=== PATIENT | male | born 1985 | race Caucasian/White ===

== ENCOUNTER → 2020-12-26 14:09 | Outpatient (REF) | payer MEDICARE, MEDICAID, SELFPAY ==
--- NOTE | 2020-12-26 14:12 | CA_ITS ---
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 Normal LV systolic and diastolic function 2. Normal cardiac valvular Doppler 3. Normal RV systolic pressure 4. No pericardial effusion Findings Left Ventricle Normal left ventricular size, thickness, and systolic function. The visually estimated ejection fraction is between 60-65%. There is paradoxical septal motion consistent with a right ventricular pacemaker. Spectral Doppler is indicative of a normal filling pattern. Right Ventricle Normal right ventricular cavity size and systolic function. There is a pacemaker wire seen in the right ventricle. Atria Both atria are normal in size. Interatrial shunt cannot be excluded. A pacemaker wire is identified in the right atrium. Aortic Valve Normal aortic valve structure and function. There is no aortic valve stenosis. There is no aortic valve regurgitation. Mitral Valve Normal mitral valve structure and function. There is trace mitral valve regurgitation. There is no mitral valve stenosis. Pulmonic Valve The pulmonic valve was not well visualized. Tricuspid Valve Likely normal tricuspid valve structure and function. There is trace tricuspid valve regurgitation. The right ventricular systolic pressure is normal. The right ventricular systolic pressure is 24 mmHg. Normal right atrial pressure. There is no evidence of pulmonary hypertension. Great Vessels All visible segments of the aorta are normal in size. The pulmonary artery was not well visualized. Venous The inferior vena cava is normal in size and collapses greater than 50% with inspiration. Pericardium/Pleural There is no evidence of pericardial effusion. Prior Study Comparison No previous study in the last 5 years for comparison Measurements 2D Linear Measurements IVSd: 1.12 0.6-0.9/0.6-1.0 cm LVIDd: 4.76 3.9-5.3/4.2-5.9 cm LVIDd Index: 2.18 2.4-3.2/2.2-3.1 cm/m2 LVIDs: 2.94 2.0-3.6 cm LVPWd: 1.15 0.7-1.1 cm Ao Root: 3.20 2.1-3.5 cm LA Diam: 3.30 2.7-3.8/3.0-4.0 cm LAIDs Index: 1.51 1.5-2.3 cm/m2 LV Mass: 249.16 67-162/88-224 g LV Mass Index: 114.29 43-95/49-115 g/m2 LVOT Diam: 2.30 3.0+(-)1.3 cm Mitral Valve MV Pk E: 0.75 MV PK A: 0.50 MV Decel Time: 340.00 E/A: 1.50 E'Lateral: 12.60 E'Medial: 9.90 E/E' Med: 7.50 E/E' Lat: 5.90 PHT: 99.00 MVA PHT: 2.22 Decel [place]: 2.19 Aortic Valve AoV Pk Jaciel: 1.47 AoV Mn Jaciel: 0.88 AoV VTI: 0.32 AoV Pk Grad: 9.00 Aov Mn Grad: 4.00 REAGAN Cont.VTI: 3.63 LVOT LVOT Pk Jaciel: 1.24 LVOT Mn Jaciel: 0.75 LVOT VTI: 0.28 LVOT Pk Grad: 6.00 LVOT Mn Grad: 3.00 LVOT Diam: 2.30 LVOT Area: 4.15 Diastolic Function MV Pk E: 0.75 MV Pk A: 0.50 E/A: 1.50 E'Medial: 9.90 E/E' Med: 7.50 E' Laterial: 12.60 E/E' Lat: 5.90 Tricuspid Valve TR Pk Jaciel: 2.27 TR Pk Grad: 21.00 RA Press: 3.00 RVSP: 24.00 Great Vessels Aorta Ao Root-2D: 3.20 2.0-3.7 cm Ao Asc: 2.80 2.1-3.4 cm Pulmonary Valve PV Pk Jaciel: 0.88 Peak PV Grad: 3.00 Updated in Other Vendor System with Status of Final Duke Ramos MD electronically signed on 12/27/2020 12:46:23 PM with status of Final
== END ==
LOC: HO.CARD 14:09
PROVIDERS: Visit Provider Internal Medicine
DX: Z95.810 Presence of automatic (implantable) cardiac defibrillator (principal); Z86.79 Personal history of other diseases of the circulatory system
CPT/HCPCS: 93306

== ENCOUNTER 2021-03-02 10:14 | Outpatient (REF) | payer MEDICARE, MEDICAID, SELFPAY | END 2021-03-02 10:15 | disposition home or self-care (01) | LOC: HO.LAB 10:14 | PROVIDERS: Visit Provider Internal Medicine | DX: Z20.822 Contact with and (suspected) exposure to COVID-19 (principal) | CPT/HCPCS: C9803; U0003; U0005 ==

== ENCOUNTER 2021-06-28 14:00 | Emergency (ER) | payer MEDICARE, MEDICAID, SELFPAY ==
[2021-06-28 15:05] VITALS: BP 111/60; PULSE 69; RESP 18; TEMP 36.4; O2SAT 97; BMI 26.4
[2021-06-28 15:55] LABS: COVID-19 Test Negative (Negative)
--- NOTE | 2021-06-28 16:25 | ED_ITS ---
HPI - URI/Sore Throat General Chief Complaint: Upper Respiratory Symptoms Stated Complaint: cough, chest wall pain Time Seen by Provider: 06/28/21 16:01 Source: patient Mode of arrival: ambulatory Limitations: language barrier (Portuguese-speaking) History of Present Illness MD elicited complaint: cough Onset (ago): day(s) (Three days) Consistency: constant and progressively worsening Severity: mild Able to tolerate fluids by mouth: Yes Exacerbating factors: deep breaths Relieving factors: nothing Associated symptoms: denies other symptoms Treatments prior to arrival: none Related Data Previous Rx's Medication Instructions Recorded azithromycin 250 mg tablet See Rx Instructions .ROUTE 06/28/21 .COMPLEX #6 tab codeine 10 mg-guaifenesin 100 mg/5 5 ml PO Q6H PRN #120 ml 06/28/21 mL oral liquid (Guaifenesin AC) Allergies Allergy/AdvReac Type Severity Reaction Status Date / Time No Known Allergies Allergy Unverified 04/24/20 14:49 Review of Systems Review of Systems: Constitutional : No Weight loss, No Fever, No Chills, No Night Sweats, No Fatigue, No Malaise ENT/Mouth : No Hearing loss, No Ear Pain, No Nasal Congestion, No Sinus Pain, No Hoarseness, No sore throat, No Rhinorrhea, No Swallowing Difficulty Eyes: No Eye Pain, No Swelling, No Redness, No Foreign Body, No Discharge, No Vision Changes Cardiovascular : No Chest Pain, No SOB, No Dyspnea on Exertion, No Orthopnea, No Edema, No Palpitations Respiratory : + Cough, No Sputum, No Wheezing, No Smoke Exposure, No Dyspnea Gastrointestinal : No Nausea, No Vomiting, No Diarrhea, No Constipation, No abdominal Pain, No Hematochezia, No Melena Genitourinary : no irregular bleeding, No Dysuria, No Urinary Frequency, No Hematuria, No Urinary Incontinence, No Urgency, No Flank Pain, No Urinary Flow Changes, No Hesitancy Musculoskeletal : No joint pain, No Myalgias, No Joint Swelling Skin : No Skin Lesions, No rash Neuro : No Weakness, No Numbness, No Paresthesias, No Loss of Consciousness, No Dizziness, No Headache Psych : No Anxiety/Panic, No Depression, No SI/HI/AH/VH, No Social Issues, Heme/Lymph: No Bruising, No Bleeding,No Lymphadenopathy Endocrine : No Polyuria, No Polydipsia, No Temperature Intolerance Yes all other systems are reviewed and are negative [facility] Past Medical History Attestation statement: The following information was validated with the patient. Medical History Patient denies medical problems Social History Social History Advance Directives: No Physical Exam Vital Signs: Vital Signs: Last Vital Signs Temp 97.5 F 06/28/21 15:05 Pulse 69 06/28/21 15:05 Resp 18 06/28/21 15:05 BP 111/60 06/28/21 15:05 Pulse Ox 97 06/28/21 15:05 Body Mass Index 26.4 vital signs have been reviewed as normal and appeared to be correct. Blood pressure normal. Heart rate normal. Respiration rate normal. Temperature normal. Oxygen saturation normal. Appearance: Alert. Oriented X3. No acute distress. Head: Normal external exam. Normocephalic. Atraumatic. Eyes: PERRLA. EOMI. Conjunctiva and sclera normal. Eyelids normal. ENT: EAC normal. TM's Normal. Pharynx normal. Uvula midline. Moist mucous membranes. No trismus noted. No drooling noted. No muffled voice noted. Neck: Normal inspection. Neck supple. FROM. No adenopathy. Thyroid Normal. No meningeal signs. No neck mass noted. CVS: Normal heart rate and rhythm. Heart sound normal. Pulses normal throughout. No murmurs/rales/gallops. Respiratory: No respiratory distress. Painless inspiration. Breath sounds normal. No wheezes/rales/rhonchi noted. Chest nontender. No accessory muscle usage noted or decreased air movement noted. Back: Full range of motion noted. No rashes/lesion/induration/fluctuance or signs of infection noted. Skin: Skin warm and dry. Normal skin color. Normal skin turgor. No rashes/lesions/lacerations noted. Extremities: Extremities exhibit normal range of motion. Extremities nontender. Neuro: Oriented X 3. No motor deficit. No sensory deficit. Reflexes normal. Normal steady gait. No focal neuro deficits noted. Vascular: + radial pulses Normal cap refill. No cyanosis noted to upper extremity nails Course Course Course Narrative: 36-year-old male presenting to the ED with a dry cough for the past 3 days. Denies recent travel or sick contacts. Is not vaccinated to COVID. Denies any other complaints or concerns at this time. Patient negative for COVID. Lungs clear to auscultation. CV RRR. No labs or imaging indicated at this time. Patient most likely bronchitis will DC home with symptomatic treatment instructions return if any new or worsening symptoms to follow up with primary care provider and to self isolate and to be retested in 5-7 days if he continues to have symptoms. Patient understands agrees with this plan. MDM - URI/Sore Throat Medical Records Attestation: I reviewed the patient's medical records. Lab Data Attestation: I reviewed the patient's lab results. Labs: Lab Results 06/28/21 Range/Units 15:30 COVID-19 ([facility]AYY) Negative (Negative) COVID-19 Clin Com See Note Discharge Plan Discharge Clinical Impression: Bronchitis Patient Disposition: Home, Self-Care Instructions: Acute Bronchitis (ED) Additional Instructions: You had a negative COVID results today although your symptoms just started recen tly therefore you should have repeat testing in 5-7 days to be certain that you do not have COVID. At this time you will be okay for discharge. Please plan for self quarantine for up to 14 days. Do not expose yourself to others. You may not go to work. If testing does come back negative you may return to activities as long as you are no longer having any symptoms for at least 3 days. Please continue to follow cold instructions and wash your hands frequently. You may take Tylenol as directed on the bottle for pain or fever. Patient seen in the emergency department on -------- and should be excused from work until negative test results AND until 72 hours without any symptoms AND at least 10 days have passed since symptoms first appeared or since last exposure to COVID-19 positive patient CDC Guidelines for home isolation: - Stay away from others - WEAR A MASK if you are sick AND STAY HOME - Cover your mouth and nose with a tissue when you cough or sneeze. Dispose of t issues in a lined trash can and wash your hands immediately with soap and water for at least 20 seconds. If soap and water are not available, clean hands with alcohol-based hand sap business analyst that contains at least 60% alcohol. - Clean your hands often with soap and water for at least 20 seconds - Avoid touching your eyes, nose and mouth with unwashed hands - Do not share dishes, drinking glasses, cups, eating utensils, towels, or bedding with other people in your home. After using these items, wash them thoroughly with soap and water or put in the aviation tactical readiness officer. - Clean high-touch surfaces in your isolation area ( sick room and bathroom) every day; let a caregiver clean and disinfect high-touch surfaces in other areas of the home. Clean the area or item with soap and water or another detergent if it is dirty. Then, use a household disinfectant. - Limit contact with pets and animals: If you must care for a pet, wash your hands before and after interacting with them). Prescriptions: New azithromycin 250 mg tablet See Rx Instructions .ROUTE .COMPLEX Qty: 6 RF: 0 codeine-guaifenesin [Guaifenesin AC] 10-100 mg/5 mL liquid 5 ml PO Q6H PRN (Reason: cold symptoms) Qty: 120 RF: 0 Referrals: [employer],[facility] [Primary Care Provider] - 2 days Stand Alone Forms: Work/School Release Print Language: Kyrgyz
== END 2021-06-28 16:48 | disposition home or self-care (01) ==
PROVIDERS: Emergency Provider Emergency Medicine Emergency Medical Services
DX: J40 Bronchitis, not specified as acute or chronic (principal); R05.9 Cough, unspecified; R07.89 Other chest pain; Z79.899 Other long term (current) drug therapy; Z20.822 Contact with and (suspected) exposure to COVID-19
CPT/HCPCS: 36415; 87635; 99283

== ENCOUNTER 2022-06-11 17:27 | Emergency (ER) | payer MEDICARE, MEDICAID, SELFPAY ==
--- NOTE | 2022-06-11 | ECG_ITS ---
Test Reason : CP Blood Pressure : / mmHG Vent. Rate : 056 BPM Atrial Rate : 056 BPM P-R Int : 164 ms QRS Dur : 102 ms QT Int : 446 ms P-R-T Axes : 086 030 007 degrees QTc Int : [address] & T wave abnormality, consider anterior ischemia Abnormal ECG When compared with ECG of 22-MAR-2009 18:49, No significant change was found Referred By: Generic ED Physician Electronically Signed By:AMY CUNNINGHAM MD
--- NOTE | ~2022-06-11 | XR_ITS ---
EXAMINATION: XR CHEST CLINICAL INFORMATION: Chest pain COMPARISON: Chest x-ray 2008 TECHNIQUE: 2 views of the chest were obtained. FINDINGS: The lungs are clear. No airspace consolidation, pleural effusion, or pneumothorax. The cardiomediastinal silhouette is within normal limits. Right-sided dual-chamber ICD with lead tips in the right atrium and additional lead tip terminating in the right ventricular apex. No acute osseous injury. XR/XR chest 2V IMPRESSION: No acute pulmonary process.
[2022-06-11 18:00] VITALS: BP 115/55; PULSE 59; RESP 20; TEMP 36.6; O2SAT 97; BMI 28.5
[2022-06-11 18:18] LABS: MANUAL DIFF FLAG NO
[2022-06-11 18:21] LABS: Basophils Percent Auto 0.5 % (0-2); Eosinophils Absolute Auto 0.9 X10*3/uL (0.0-0.4); Eosinophils Percent Auto 11.2 % (0-4); Hematocrit 41.8 % (42.0-52.0); Hemoglobin 14.1 g/dl (14.0-18.0); Imm Gran Abs Auto 0.02 X10*3/uL (0.00-0.03); Imm Gran Pct Auto 0.2 % (0.0-0.4); Lymphocytes Percent Auto 12.3 % (20-40); Mean Corpuscular HGB Conc 33.7 g/dl (31.0-36.0); Mean Corpuscular Hemoglobin 27.8 pg (27.0-33.0); Mean Corpuscular Volume 82.3 fL (80.0-98.0); Mean Platelet Volume 9.3 fL (9.4-12.4); Monocytes Absolute Auto 0.9 X10*3/uL (0.1-1.2); Monocytes Percent Auto 11.6 % (2-11); Neutrophils Absolute Auto 5.2 x10*3/uL (2.0-8.3); Neutrophils Percent Auto 64.2 % (45-73); Platelet Count 199 X10*3/uL (160-400); Red Blood Count 5.08 X10*6/uL (4.60-5.80); Red Cell Distribution Width 13.2 % (11.0-16.0)
[2022-06-11 18:36] LABS: COVID-19 Test Negative (Negative); IDNOW Serial# 16C4AD1C; Influenza A Negative (Negative); Influenza B2 Negative (Negative)
[2022-06-11 18:39] LABS: Anion Gap 15 (12-20); Blood Urea Nitrogen 12 mg/dL (9-16); Calcium 8.9 mg/dL (8.4-10.2); Carbon Dioxide 24 mmol/L (22-29); Chloride 105 mmol/L (96-108); Creatinine Clr Calc Pharmacy 115.3; Estimated Glomerular Filt Rate > 60; Glucose Random 84 mg/dL (60-115); Sodium 140 mmol/L (135-145)
--- NOTE | 2022-06-11 18:50 | ED_ITS ---
HPI - Chest Pain General Chief Complaint: Chest Pain Stated Complaint: chest pain, coughing Time Seen by Provider: 06/11/22 18:36 Source: patient, RN notes reviewed and old records reviewed Mode of arrival: ambulatory Limitations: no limitations History of Present Illness HPI narrative: 37-year-old male with past medical history of pacemaker placement at age 12 is here today for complaining of chest pain sharp nonradiating after coughing this morning which is about 9 hours ago. Patient denies any fever or chills. Patient denies chest pain now. States that chest pain went away few minutes after coughing episode. Patient denies any presyncope, syncope, chest tightness, SOB with or without exertion, energy. Patient reports that she had a negative placed when he was 12 for bradycardia. Patient sees providers at [facility]. He has regular appointment with his back end engineer. Patient denies any fever or chills. Denies any nausea or vomiting. Denies being around anyone who has fever, COVID, flu, RSV. Patient denies traveling. MD complaint: chest pain (Results) Onset (ago): hour(s) (9 hrs ago ) Timing of current episode: episodic Onset: during rest and other (After coughing) Pain location: substernal Pain radiation: none Severity: mild Quality: sharp Related Data Previous Rx's Medication Instructions Recorded azithromycin 250 mg tablet See Rx Instructions PO .COMPLEX #6 06/28/21 tabs codeine 10 mg-guaifenesin 100 mg/5 5 ml PO Q6H PRN cold symptoms #120 06/28/21 mL oral liquid (Guaifenesin AC) mL Allergies Allergy/AdvReac Type Severity Reaction Status Date / Time No Known Allergies Allergy Unverified 04/24/20 14:49 Review of Systems Constitutional: Constitutional: Denies weight gain and Denies weight loss ENT: Reports system reviewed and no additional complaints, except as documented, Denies dysphagia and Denies odynophagia Cardiovascular: Cardiovascular: Reports no additional cardiovascular complaints and Reports chest pain (In the morning after coughing now resolved) Respiratory: Respiratory: Reports no additional respiratory complaints Gastrointestinal: Gastrointestinal: Denies abdominal pain, Denies belching, Denies melena, Denies bloating, Denies change in bowel habits, Denies dysphagia, Denies excessive flatus, Denies dyspepsia, Denies heartburn, Denies diarrhea, De nies loose stools, Denies nausea, Denies odynophagia and Denies vomiting Genitourinary: Genitourinary: Reports no additional male genitourinary co mplaints Musculoskeletal: Musculoskeletal: Reports no additional musculoskeletal complaints Neurologic: Reports system reviewed and no additional complaints, except as documented Psychiatric: Psychiatric: Reports no additional psychiatric complaints Endocrine: Endocrine: Reports no additional endocrine complaints PMFSH Past Medical History Medical History Patient denies medical problems Social History Social History Advance Directives: No Advance Directives Information Provided: No Physical Exam Vital Signs: Vital Signs: Last Vital Signs Temp 97.9 F 06/11/22 18:00 Pulse 59 06/11/22 18:00 Resp 20 06/11/22 18:00 BP 115/55 L 06/11/22 18:00 Pulse Ox 97 06/11/22 18:00 O2 Del Method 06/11/22 18:00 BMI result Body Mass Index 28.5 Const: General: healthy appearing, no acute distress and well developed Nutritional Appearance: well nourished Orientation/consciousness: patient or iented x3 HEENT: Head: Yes normal to inspection, Yes normocephalic and Yes atraumatic Face and sinus: Yes normal facial exam Mouth: Normal oral and palatal mucosa present Throat: Yes posterior oropharynx normal, Yes tonsils normal and Yes uvula midline Eyes: General: appearance normal, both eyes and all related structures Neck: Neck: Yes normal visual inspection, Yes full ROM and Yes trachea midline Thyroid: Thyroid normal Resp: Effort & Inspection: normal respiratory effort, able to speak in complete sentences, no tracheal deviation and symmetric chest movement Auscultation: clear to auscultation bilaterally Cardio: Rate: regular rate Heart sounds: S1 normal heart sound present, S2 normal heart sound present, no gallops and no murmurs GI: Inspection: Yes normal to inspection and No distended Palpation (GI): Soft to palpation, not firm, nontender and No hepatosplenomegaly present Auscultation: normal bowel sounds : General: Yes no CVA tenderness Back/Spine/Pelvis: Back: no CVA tenderness Skin: General skin exam: elasticity normal, turgor normal and dry skin Neuro: General: patient oriented x3 Psych: Appearance: grossly normal Mental Status: mental status grossly normal Speech and movement: Normal speech and movement present Affect: normal affect Attitude: cooperative Thought process: Normal thought process present Thought content: Normal thought content present Insight: Good insight present (Psych) Judgement: Good judgement present (Psych) Course Course Course Narrative: 37-year-old male with past medical history of pacemaker placement at age 12 is here today for complaining of chest pain sharp nonradiating after coughing this morning which is about 9 hours ago. Patient denies any fever or chills. Patient denies chest pain now. States that chest pain went away few minutes after coughing episode. Patient denies any presyncope, syncope, chest tigh tness, SOB with or without exertion, energy. Patient reports that she had a negative placed when he was 12 for bradycardia. Patient sees providers at [facility]. He has regular appointment with his back end engineer. Patient denies any fever or chills. Denies any nausea or vomiting. Denies being around anyone who has fever, COVID, flu, RSV. Patient denies traveling. Will do troponin, CBC. Chest x-ray show no acute processes. Reevaluation(s) Reevaluation #1: Troponin 5.4, negative leukocytosis no anemia for patient continues to be free of chest pain right now. Will repeat 2nd troponin. Most likely atypical chest pain, musculoskeletal most likely. Disposition pending 2nd troponin. Reevaluation #2: Second troponin 5. Patient continues to be free of chest pain. DUS negative patient will be sent home to follow-up with PCP and his back end engineer. Most l ikely musculoskeletal pain that happen with cough. Patient had no cough while in the ED. no fever MDM - Chest Pain Differential Diagnosis Differential diagnosis: Likely atypical chest pain and costochondritis Medical Records Data Attestation: I reviewed the patient's medical records. Lab Data Result diagrams: 06/11/22 18:10 06/11/22 18:10 Labs: Lab Results 06/11/22 06/11/22 06/11/22 Range/Units 18:10 18:10 18:10 WBC 8.0 (4.8-10.8) X10*3/uL RBC 5.08 (4.60-5.80) X10*6/uL Hgb 14.1 (14.0-18.0) g/dl Hct 41.8 L (42.0-52.0) % MCV 82.3 (80.0-98.0) fL MCH 27.8 (27.0-33.0) pg MCHC 33.7 (31.0-36.0) g/dl RDW 13.2 (11.0-16.0) % Plt Count 199 (160-400) X10*3/uL MPV 9.3 L (9.4-12.4) fL Immature Gran % (Auto) 0.2 (0.0-0.4) % Neut % (Auto) 64.2 (45-73) % Lymph % (Auto) 12.3 L (20-40) % Cedar % (Auto) 11.6 H (2-11) % Eos % (Auto) 11.2 H (0-4) % Baso % (Auto) 0.5 (0-2) % Lymph # (Auto) 1.0 L (1.2-4.9) X10*3/uL Cedar # (Auto) 0.9 (0.1-1.2) X10*3/uL Eos # (Auto) 0.9 H (0.0-0.4) X10*3/uL Baso # (Auto) 0.0 (0.0-0.2) X10*3/uL Abs Immat Gran (auto) 0.02 (0.00-0.03) X10*3/uL Absolute Neuts (auto) 5.2 (2.0-8.3) x10*3/uL Absolute Nucleated RBC 0.000 (0.0-0.012) X10*3/uL Nucleated RBC % (auto) 0.0 (0.0-0.2) /100WBC Sodium 140 (135-145) mmol/L Potassium 4.0 (3.3-5.1) mmol/L Chloride 105 (96-108) mmol/L Carbon Dioxide 24 (22-29) mmol/L Anion Gap 15 (12-20) BUN 12 (9-16) mg/dL Creatinine 1.06 (0.5-1.4) mg/dL Estim Creat Clear Calc 115.3 Estimated GFR > 60 Random Glucose 84 (60-115) mg/dL Calcium 8.9 (8.4-10.2) mg/dL Troponin I High Sens 5.4 (<3.5-35.0) ng/L Urine Opiates Screen (Not Detect) Urine Fentanyl Screen (Not Detect) Ur Barbiturates Screen (Not Detect) Ur Phencyclidine Scrn (Not Detect) Ur Amphetamines Screen (Not Detect) U Benzodiazepines Scrn (Not Detect) Urine Cocaine Screen (Not Detect) U Marijuana (THC) Screen (Not Detect) COVID-19 (SHAYY) (Negative) COVID-19 Clin Com Influenza Type A (PALMA) (Negative) Influenza Type B (PALMA) (Negative) Influenza A & B Note 06/11/22 06/11/22 06/11/22 Range/Units 18:10 18:10 20:03 WBC (4.8-10.8) X10*3/uL RBC (4.60-5.80) X10*6/uL Hgb (14.0-18.0) g/dl Hct (42.0-52.0) % MCV (80.0-98.0) fL MCH (27.0-33.0) pg MCHC (31.0-36.0) g/dl RDW (11.0-16.0) % Plt Count (160-400) X10*3/uL MPV (9.4-12.4) fL Immature Gran % (Auto) (0.0-0.4) % Neut % (Auto) (45-73) % Lymph % (Auto) (20-40) % Cedar % (Auto) (2-11) % Eos % (Auto) (0-4) % Baso % (Auto) (0-2) % Lymph # (Auto) (1.2-4.9) X10*3/uL Cedar # (Auto) (0.1-1.2) X10*3/uL Eos # (Auto) (0.0-0.4) X10*3/uL Baso # (Auto) (0.0-0.2) X10*3/uL Abs Immat Gran (auto) (0.00-0.03) X10*3/uL Absolute Neuts (auto) (2.0-8.3) x10*3/uL Absolute Nucleated RBC (0.0-0.012) X10*3/uL Nucleated RBC % (auto) (0.0-0.2) /100WBC Sodium (135-145) mmol/L Potassium (3.3-5.1) mmol/L Chloride (96-108) mmol/L Carbon Dioxide (22-29) mmol/L Anion Gap (12-20) BUN (9-16) mg/dL Creatinine (0.5-1.4) mg/dL Estim Creat Clear Calc Estimated GFR Random Glucose (60-115) mg/dL Calcium (8.4-10.2) mg/dL Troponin I High Sens (<3.5-35.0) ng/L Urine Opiates Screen Not Detected (Not Detect) Urine Fentanyl Screen Not Detected (Not Detect) Ur Barbiturates Screen Not Detected (Not Detect) Ur Phencyclidine Scrn Not Detected (Not Detect) Ur Amphetamines Screen Not Detected (Not Detect) U Benzodiazepines Scrn Not Detected (Not Detect) Urine Cocaine Screen Not Detected (Not Detect) U Marijuana (THC) Screen Not Detected (Not Detect) COVID-19 (SHAYY) Negative (Negative) COVID-19 Clin Com See Note Influenza Type A (PALMA) Negative (Negative) Influenza Type B (PALMA) Negative (Negative) Influenza A & B Note See Note 06/11/22 Range/Units 20:03 WBC (4.8-10.8) X10*3/uL RBC (4.60-5.80) X10*6/uL Hgb (14.0-18.0) g/dl Hct (42.0-52.0) % MCV (80.0-98.0) fL MCH (27.0-33.0) pg MCHC (31.0-36.0) g/dl RDW (11.0-16.0) % Plt Count (160-400) X10*3/uL MPV (9.4-12.4) fL Immature Gran % (Auto) (0.0-0.4) % Neut % (Auto) (45-73) % Lymph % (Auto) (20-40) % Cedar % (Auto) (2-11) % Eos % (Auto) (0-4) % Baso % (Auto) (0-2) % Lymph # (Auto) (1.2-4.9) X10*3/uL Cedar # (Auto) (0.1-1.2) X10*3/uL Eos # (Auto) (0.0-0.4) X10*3/uL Baso # (Auto) (0.0-0.2) X10*3/uL Abs Immat Gran (auto) (0.00-0.03) X10*3/uL Absolute Neuts (auto) (2.0-8.3) x10*3/uL Absolute Nucleated RBC (0.0-0.012) X10*3/uL Nucleated RBC % (auto) (0.0-0.2) /100WBC Sodium (135-145) mmol/L Potassium (3.3-5.1) mmol/L Chloride (96-108) mmol/L Carbon Dioxide (22-29) mmol/L Anion Gap (12-20) BUN (9-16) mg/dL Creatinine (0.5-1.4) mg/dL Estim Creat Clear Calc Estimated GFR Random Glucose (60-115) mg/dL Calcium (8.4-10.2) mg/dL Troponin I High Sens 5.0 (<3.5-35.0) ng/L Urine Opiates Screen (Not Detect) Urine Fentanyl Screen (Not Detect) Ur Barbiturates Screen (Not Detect) Ur Phencyclidine Scrn (Not Detect) Ur Amphetamines Screen (Not Detect) U Benzodiazepines Scrn (Not Detect) Urine Cocaine Screen (Not Detect) U Marijuana (THC) Screen (Not Detect) COVID-19 (SHAYY) (Negative) COVID-19 Clin Com Influenza Type A (PALMA) (Negative) Influenza Type B (PALMA) (Negative) Influenza A & B Note Imaging Data Chest x-ray: Radiologist's impression: FINDINGS: The lungs are clear. No airspace consolidation, pleural effusion, or pneumothorax. The cardiomediastinal silhouette is within normal limits. Right-sided dual-chamber ICD with lead tips in the right atrium and additional lead tip terminating in the right ventricular apex. No acute osseous injury. XR/XR chest 2V IMPRESSION: No acute pulmonary process. ECG Data ECG #1: Prior ECG tracings: available for review Ischemic changes: t wave inversions (Leads V1 to V4, when compared with last EKG available in the system from 2008 new T-wave inversion in V4 ) Interpretation: Ventricular rate he 56, AK interval 0.16, QRS 0.1, QT interval 446, QTC 430. Discharge Plan Discharge Clinical Impression: Atypical chest pain, Costalchondritis Patient Disposition: Home, Self-Care Instructions: Chest Pain (ED), Costochondritis (ED), Noncardiac Chest Pain (ED) Additional Instructions: You were seen here today for chest pain after coughing. All your lab work showed that this is not cardiac is(heart) related pain. Most likely musculoskeletal pain. Please follow-up with your primary care provider and with your back end engineer. Please return to emergency department if your symptoms will get worse or if you experience any additional concerning symptoms. Prescriptions: No Action azithromycin 250 mg tablet See Rx Instructions .ROUTE .COMPLEX Qty: 6 0RF Rx Instructions: take 500 mg today (day 1), then 250 mg for 4 days (days 2-5) codeine-guaifenesin [Guaifenesin AC] 10-100 mg/5 mL liquid 5 ml PO Q6H PRN (Reason: cold symptoms) Qty: 120 0RF Stand Alone Forms: Work/School Release Print Language: Uzbek
[2022-06-11 19:32] LABS: Troponin-I High Sensitivity 5.4 ng/L (<3.5-35.0)
[2022-06-11] MEDS: Aspirin Enteric Coated 81 MG TABLET.DR 162 MG PO (19:40)
[2022-06-11 20:29] LABS: Amphetamine Screen Urine Not Detected (Not Detect); Barbiturates, Urine Not Detected (Not Detect); Benzodiazepines Screen Urine Not Detected (Not Detect); Cannabinoid Screen Urine Not Detected (Not Detect); Cocaine Screen Urine Not Detected (Not Detect); Fentanyl, urine Not Detected (Not Detect); Opiate Screen Urine Not Detected (Not Detect); Phencyclidine Screen Urine Not Detected (Not Detect)
[2022-06-11 21:30] VITALS: BP 106/58; PULSE 57; RESP 16; TEMP 36.8; O2SAT 99
== END 2022-06-11 21:38 | disposition home or self-care (01) ==
PROVIDERS: Nurse Practitioner Family; Emergency Provider Student in an Organized Health Care Education/Training Program
DX: R07.89 Other chest pain (principal); R05.9 Cough, unspecified; Z20.822 Contact with and (suspected) exposure to COVID-19; Z79.899 Other long term (current) drug therapy
CPT/HCPCS: 36415; 71046; 80048; 80307; 84484; 85025; 87502; 87635; 93005; 99283

== ENCOUNTER 2023-06-15 10:21 | Emergency (ER) | payer MEDICARE, MEDICAID, SELFPAY ==
--- NOTE | 2023-06-15 10:25 | ECG_ITS ---
Test Reason : cp Blood Pressure : / mmHG Vent. Rate : 074 BPM Atrial Rate : 074 BPM P-R Int : 180 ms QRS Dur : 090 ms QT Int : 428 ms P-R-T Axes : 078 050 038 degrees QTc Int : 475 ms Normal sinus rhythm T-wave inversion in Anteroseptal leads Intra-ventricular conduction delay Abnormal ECG When compared with ECG of 11-JUN-2022 18:10, T wave amplitude has decreased in Anterior leads Referred By: Generic ED Physician Electronically Signed By:AMY CUNNINGHAM MD
[2023-06-15 11:18] VITALS: BP 113/66; PULSE 61; RESP 18; TEMP 36.5; O2SAT 97; BMI 23.1
[2023-06-15 12:50] LABS: Influenza A PCR NEGATIVE (Negative); Influenza B PCR NEGATIVE (Negative); Resp Syncy Virus RNA Qual PCR NEGATIVE (Negative); SARS COV2 PCR INHOUSE NEGATIVE (Negative)
--- NOTE | 2023-06-15 17:54 | ED_ITS ---
HPI - URI/Sore Throat General Chief Complaint: Upper Respiratory Symptoms Stated Complaint: Cough/Chest pain Time Seen by Provider: 06/15/23 16:17 History of Present Illness HPI Narrative: patient complains of a cough which began yesterday and is described as mild with no sputum no shortness of breath no chest pain no fever no sore throat no difficulty breathing or swallowing no dizziness no weakness no fatigue no abdominal pain no nausea vomiting or diarrhea no calf swelling no leg pain no leg swelling Triage note did not say that patient had some shortness of breath and some pain around chest wall but when I spoke to the patient he denies any chest pain or shortness of breath Related Data Previous Rx's Medication Instructions Recorded azithromycin 250 mg tablet See Rx Instructions PO .COMPLEX #6 06/28/21 tabs codeine 10 mg-guaifenesin 100 mg/5 5 ml PO Q6H PRN cold symptoms #120 06/28/21 mL oral liquid (Guaifenesin AC) mL azithromycin 250 mg tablet See Rx Instructions PO .COMPLEX #6 06/15/23 (Zithromax Z-Ravin) tabs Allergies Allergy/AdvReac Type Severity Reaction Status Date / Time No Known Allergies Allergy Unverified 04/24/20 14:49 [facility] Past Medical History Source: nursing notes reviewed Medical History Patient denies medical problems Social History Social History Advance Directives: No Advance Directives Information Provided: Yes Physical Exam Vital Signs: Vital Signs: Last Vital Signs Temp 97.7 F 06/15/23 11:18 Pulse 61 06/15/23 11:18 Resp 18 06/15/23 11:18 BP 113/66 06/15/23 11:18 Pulse Ox 97 06/15/23 11:18 O2 Del Method Room Air 06/15/23 11:18 BMI result Body Mass Index 23.1 general appearance is comfortable cooperative no acute distress no respiratory distress Eyes no redness or discharge The pharynx is clear Neck is supple Chest is clear to auscultation bilateral with full symmetric equal breath sounds There is no chest wall tenderness, there is no discomfort with deep breath Heart no murmur Abdomen soft nontender Extremities no calf tenderness or edema Course Course Course Narrative: patient who came in for cough x1 day with no shortness of breath or chest pain He did have an EKG done from triage which was a normal sinus rhythm without acute ischemic change no acute findings COVID and flu tests were negative The physical exam was normal with clear full symmetric lung sounds no wheezing no respiratory distress, vital signs were normal O2 sat 97 respiratory rate 16 afebrile Well-appearing patient was discharged with diagnosis of bronchitis Medical Decision Making Lab Data Labs: Lab Results 06/15/23 Range/Units 11:35 Influenza Type A (PCR) NEGATIVE (Negative) Influenza Type B (PCR) NEGATIVE (Negative) RSV RNA Qual (PCR) NEGATIVE (Negative) SARS-CoV-2 RNA (RT-PCR) NEGATIVE (Negative) Discharge Plan Discharge Clinical Impression: Bronchitis Patient Disposition: Home, Self-Care Additional Instructions: EKG was normal no signs of any heart problem COVID and flu tests were negative Vital signs were all normal your lungs were clear It is likely that your cough is from a virus, but I did write a prescription for antibiotic if cough does not improve in for 5 days Return to the ER any time any worse condition or any concern especially difficulty breathing Prescriptions: New azithromycin [Zithromax Z-Ravin] 250 mg tablet See Rx Instructions .ROUTE .COMPLEX Qty: 6 0RF Rx Instructions: For 250 mg dose pack: take 500 mg today (day 1), then 250 mg for 4 days (days 2-5) No Action azithromycin 250 mg tablet See Rx Instructions .ROUTE .COMPLEX Qty: 6 0RF Rx Instructions: take 500 mg today (day 1), then 250 mg for 4 days (days 2-5) codeine-guaifenesin [Guaifenesin AC] 10-100 mg/5 mL liquid 5 ml PO Q6H PRN (Reason: cold symptoms) Qty: 120 0RF
== END 2023-06-15 18:04 | disposition home or self-care (01) ==
PROVIDERS: Emergency Provider Emergency Medicine
DX: J40 Bronchitis, not specified as acute or chronic (principal); R07.89 Other chest pain; R06.02 Shortness of breath; R05.9 Cough, unspecified; Z20.822 Contact with and (suspected) exposure to COVID-19; Z20.828 Contact with and (suspected) exposure to other viral communicable diseases
CPT/HCPCS: 0241U; 93005; 99283

== ENCOUNTER 2024-11-30 10:19 | Emergency (ER) | payer MEDICARE, MEDICAID, SELFPAY ==
--- NOTE | ~2024-11-30 | XR_ITS ---
EXAMINATION: XR HIP 1 VIEW RIGHT WITH PELVIS HISTORY: fall COMPARISON: There are no prior studies for comparison. FINDINGS: Two AP views of the pelvis and two views of the right hip are submitted. There are herniation pits in both femoral necks. Osseous mineralization is otherwise normal. There is no fracture or dislocation. The joint space is maintained. The soft tissues are unremarkable. XR/XR hip RT w PEL1V IMPRESSION: Unremarkable examination of the right hip. Electronically signed by: Quique Shipman MD 11/30/2024 11:01 AM EDT
--- NOTE | ~2024-11-30 | XR_ITS ---
EXAMINATION: XR FEMUR, RIGHT CLINICAL INFORMATION: fall COMPARISON: None available. TECHNIQUE: AP and lateral views of the right femur were obtained. FINDINGS: The bones and soft tissues are normal. No fracture. No osseous lesions. Mild arthritis in the right hip joint. No knee joint effusion noted. Lateral patellar subluxation incidentally noted. XR/XR femur RT 2V IMPRESSION: No acute bony abnormalities. Lateral patellar subluxation incidentally noted. Electronically signed by: Dax Hart MD 11/30/2024 12:44 PM EDT
[2024-11-30 10:29] VITALS: BP 135/78; PULSE 60; RESP 20; TEMP 37; O2SAT 98; BMI 29.7
--- NOTE | 2024-11-30 10:48 | PC.NURSE ---
Pt given ice pack in triage, pt then noted to be laying on floor in waiting room. Pt noted to get up off floor and bearing some weight on right leg, and also noted to be lifting his knee to his chest while in the WC being brought to Xray
--- NOTE | 2024-11-30 11:12 | ED.FALL ---
HPI - Fall General Chief Complaint: Fall Stated Complaint: Fall- R Leg Pain/ Hip Pain Time Seen by Provider: 11/30/24 11:11 Source: patient, RN notes reviewed and old records reviewed Mode of arrival: ambulatory History of Present Illness ED Provider: Janeth Garcia PA-C [facility] Narrative: 39-year-old male no significant past medical history presenting to the ED complaining of right upper leg/hip pain s/p mechanical fall onto hip while attempting to put pants on this morning. States fell onto hardwood floor, denies head trauma or LOC. denies symptoms prior to fall. Has been ambulatory since incident. Denies anticoagulation use, numbness, tingling, weakness, abdominal pain Related Data Previous Rx's ?Medication ?Instructions ?Recorded azithromycin 250 mg tablet See Rx Instructions PO .COMPLEX #6 06/28/21 tabs codeine 10 mg-guaifenesin 100 mg/5 5 ml PO Q6H PRN cold symptoms #120 06/28/21 mL oral liquid (Guaifenesin AC) mL azithromycin 250 mg tablet See Rx Instructions PO .COMPLEX #6 06/15/23 (Zithromax Z-Ravin) tabs acetaminophen 500 mg tablet 500 mg PO Q6H PRN fever or pain 11/30/24 (Tylenol Extra Strength) #14 tabs ibuprofen 800 mg tablet 800 mg PO Q8H PRN pain #14 tabs 11/30/24 Allergies Allergy/AdvReac Type Severity Reaction Status Date / Time No Known Allergies Allergy Unverified 11/30/24 10:30 Review of Systems Review of Systems: Yes all other systems are reviewed and are negative Constitutional: Constitutional: Reports as per [facility] Past Medical History Attestation statement: The following information was validated with the patient. Source: old records reviewed Medical History Patient denies medical problems Social History Social History Advance Directives: No Advance Directives Information Provided: Yes Physical Exam Vital Signs: Vital Signs: Last Vital Signs Temp 98.6 F 11/30/24 10:29 Pulse 60 11/30/24 10:29 Resp 20 11/30/24 10:29 BP 135/78 11/30/24 10:29 Pulse Ox 98 11/30/24 10:29 O2 Del Method Room Air 11/30/24 10:29 BMI result Body Mass Index 29.7 Const: General: cooperative, healthy appearing and no acute distress Orientation/consciousness: patient oriented x3 Limitations: no limitations HEENT: Head: Yes normal to inspection and Yes atraumatic Ears: hearing grossly normal bilaterally General nose exam: Normal external nose present Face and sinus: Yes normal facial exam Eyes: General: appearance normal, both eyes and all related structures EOM: EOMs intact bilaterally Neck: Neck: Yes normal visual inspection and Yes no meningeal signs Resp: Effort & Inspection: normal respiratory effort and no respiratory distress Cardio: Rate: regular rate GI: Inspection: Yes normal to inspection Palpation (GI): Soft to palpation, nontender, no guarding and not rigid Back/Spine/Pelvis: Other: No midline cervical/thoracic/lumbar spinous tenderness/step-off or deformity Skin: Rashes: no rashes Wounds: no wounds Neuro: General: patient oriented x3, tone normal and no meningeal signs Cranial nerves: Yes CN's II-XII intact bilaterally Gait exam (Neuro): Normal gait present Extrem: Other: Pelvis stable. No appreciable deformity. Mild reproducible tenderness to right proximal femur. No hematoma/ecchymosis or crepitus. Full range of motion to right hip/RLE intact. NV intact distally General: Yes normal to inspection Course Course Course Narrative: XR hip RT w PEL1V IMPRESSION: Unremarkable examination of the right hip. XR femur RT 2V IMPRESSION: No acute bony abnormalities. Lateral patellar subluxation incidentally noted. > knee nontender. No appreciable deformity. Ambulating with steady gait. Recommend ibuprofen/Tylenol, rest, ice and PCP follow-up Results discussed with patient including worrisome signs and symptoms and strict return precautions, and when to return to the emergency department. They verbalized understanding and feel safe for discharge at this time. Medications Administered Discontinued Medications Generic Name Dose Route Start Last Admin Trade Name Freq PRN Reason Stop Dose Admin Ibuprofen 800 mg 11/30/24 11:37 11/30/24 11:40 Ibuprofen 800 Mg Tablet PO 11/30/24 11:38 800 mg ONCE ONE Administration Ketorolac Tromethamine 30 mg 11/30/24 11:19 11/30/24 11:29 Ketorolac Tromethamine 30 Mg/Ml Vial IM 11/30/24 11:20 Not Given ONCE ONE Medical Decision Making Medical Decision Making MDM Narrative: 39-year-old male no significant past medical history presenting to the ED complaining of right upper leg/hip pain s/p mechanical fall onto hip while attempting to put pants on this morning. On exam vital signs stable, NAD, nontoxic appearing, physical exam as noted above. No midline spinous tenderness. Physical exam as noted above. Concern for contusion vs strain vs fracture. Low suspicion for intra-abdominal pathology Plan: X-ray, IM Toradol Please refer to course for remaining clinical decision making, interpretation of labs/imaging results, and discussions with consultants and/or family members. Differential Diagnosis Differential Diagnoses: The differential diagnosis associated with the presentation includes As above Independent Interpretation I performed an independent interpretation of an: Plain X-Ray Radiology Impression Discussion of test interpretation with radiology: I have reviewed the radiologist's reading. External Record Review External record reviewed: Inpatient record, Office record, Outpatient record, Prior outpatient labs, Prior outpatient radiology, Primary care record and Outside ED record Tests considered The following testing was considered but not selected: As above Prescription Management I considered prescription management with: Pain Medication Chronic Conditions Patient?s care impacted by: Other Social Determinants Patient?s care significantly limited by Social Determinants of Health including: Other Social Determinant of Health Discharge Plan Discharge Clinical Impression: Left leg pain Patient Disposition: Home, Self-Care Instructions: Leg Pain (ED) Additional Instructions: Your x-rays are reassuring Ice and elevate Take Tylenol and ibuprofen for pain /swelling If pain persists or worsens/becomes unbearable, area becomes discolored, increasingly swollen, red, you spike fevers, you are unable to walk return to the ED Prescriptions: New ibuprofen 800 mg tablet 800 mg PO Q8H PRN (Reason: pain) Qty: 14 0RF acetaminophen [Tylenol Extra Strength] 500 mg tablet 500 mg PO Q6H PRN (Reason: fever or pain) Qty: 14 0RF No Action azithromycin 250 mg tablet See Rx Instructions .ROUTE .COMPLEX Qty: 6 0RF Rx Instructions: take 500 mg today (day 1), then 250 mg for 4 days (days 2-5) codeine-guaifenesin [Guaifenesin AC] 10-100 mg/5 mL liquid 5 ml PO Q6H PRN (Reason: cold symptoms) Qty: 120 0RF azithromycin [Zithromax Z-Ravin] 250 mg tablet See Rx Instructions .ROUTE .COMPLEX Qty: 6 0RF Rx Instructions: For 250 mg dose pack: take 500 mg today (day 1), then 250 mg for 4 days (days 2-5) Referrals: [facility] [Primary Care Provider] - 1 week Print Language: Kyrgyz
[2024-11-30] MEDS: Ibuprofen 800 MG TABLET PO (11:40)
--- OUTSIDE RECORDS SUMMARY | 2024-11-30 11:57 | XMS_ITS | Clinical Summary ---
Author Organization [employer] Address [address] [place] [address] Care Team Providers Care Cistern Room Operator Name Role Phone Jeannine Cobos MD Primary Care Provider + Social History Tobacco Use Types Packs/Day Years Used Date Smoking Tobacco: Never Assessed Sex and Gender Information Value Date Recorded Sex Assigned at Male 06/07/2022 10:16 AM EDT Legal Sex Male 10:16 AM EDT Gender Identity Male 06/07/2022 10:16 AM EDT Sexual Orientation Choose not to disclose 2021 10:16 AM EDT Last Filed Vital Signs Vital Sign Reading Time Taken Comments Blood Pressure 128/90 01/14/2022 12:06 AM EDT Pulse 60 01/14/2022 12:06 AM EDT Temperature - - Respiratory Rate - - Oxygen Saturation - - Inhaled Oxygen Concentration - - Weight 96.6 kg (213 lb) 01/14/2022 12:06 AM EDT Height 188 cm (6' 2 ) 01/14/2022 12:06 AM EDT Body Mass Index 27.35 01/14/2022 12:06 AM EDT Plan of Treatment Health Maintenance Due Date Last Done Comments Depression Screening 1983 Lipid Panel 1983 SDOH Screening 1983 Alcohol/Substance Use Screening 1995 Tobacco Screening 1995 Family Planning (PISQ) 1998 Hepatitis C Screening 2001 DTaP/Tdap/Td Vaccines (1 - Tdap) 2002 Hepatitis B Vaccines (1 of 3 - 19+ 3-dose series) 2002 COVID-19 Vaccine ( - 2023-2 5 season) 2024 Influenza Vaccine (#1) 2024 Zoster Vaccines (1 of 2) 2033 RSV Patients and Pa tients Aged 60 years or older (1 - 1-dose 75+ series) 2058 HIV Screening Completed 01/14/2022 HIB Vaccines Aged Out No longer eligi ble based on patient's age to complete this topic HPV Vaccines Aged Out No longer eligi ble based on patient's age to complete this topic Hepatitis A Vaccines Aged Out No long er eligible based on patient's age to complete this topic IPV Vaccines Aged Out No longer eligi ble based on patient's age to complete this topic Meningococcal Vaccine Aged Out No saige laurence eligible based on patient's age to complete this topic Pneumococcal Vaccine: Pediat rics (0 to 5 Years) and At-Risk Patients (6 to 49) Years) Aged Out No longer elig ible based on patient's age to complete this topic RSV under 20 months Aged Out No longe r eligible based on patient's age to complete this topic Rotavirus Vaccines Aged Out No longer eligible based on patient's age to complete this topic Procedures Procedure Name Priority Date/Time Associated Diagnosis Comments HIV 1/2 ANTIGEN/ANTIBODY, FOURTH GENERATION W/RFL Routine 01/14/2022 10:44 AM EDT from Last 3 Months or Most Recently Relevant to Health Maintenance Results * HIV 1/2 ANTIGEN/ANTIBODY,FOURTH GENERATION W/RFL (01/14/2022 10:44 AM EDT) Pathologist [facility] HIV-1/2 ANTIGEN AND ANTIBODIES, 4TH GENERATION W/ REFLEX NON-REACT CALVIN NON-REACT [facility] Comment: HIV-1 antigen and HIV-1/HIV-2 antibodies were not detected. There is no laboratory evidence of HIV infection. ?? PLEASE NOTE: This information has been disclosed to you from records whose confidentiality may be protected by state law. ??If your state requires such protection, then the state law prohibits you from making any further disclosure of the information without the specific written consent of the person to whom it pertains, or as otherwise permitted by law. A general authorization for the release of medical or other information is NOT sufficient for this purpose. ? For additional information please refer to http://[employer]bakers/faq/VEA012 (This link is being provided for informational/ educational purposes only.) ? The performance of this assay has not been clinically validated in patients less than 2 years old. ?? 01/14/2022 10:4 4 AM EDT Jeannine Cobos MD LAB BLOOD ORDERABLES Fin al Result [facility] [address] from Last 3 Months or Most Recently Relevant to Health Maintenance Insurance [facility] [employer] [place] [phone] Care Teams Cistern Room Operator Relationship Specialty Start Date End Date Jeannine Cobos MD [address] [place] [id number] PCP - General Family Medicine 06/21/19
[2024-11-30 13:02] VITALS: BP 138/82; PULSE 72; RESP 16; TEMP 37.1; O2SAT 99
== END 2024-11-30 13:03 | disposition home or self-care (01) ==
PROVIDERS: Emergency Provider Emergency Medicine
DX: M79.604 Pain in right leg (principal)
CPT/HCPCS: 73502; 73552; 99283; 99284; J1885

== ENCOUNTER → 2024-11-30 10:50 | Outpatient (BNV) | payer MEDICARE, MEDICAID, SELFPAY | PROVIDERS: Emergency Provider Emergency Medicine; Visit Provider Radiology Diagnostic Radiology | DX: M25.551 Pain in right hip (principal); M79.651 Pain in right thigh; W19.XXXA Unspecified fall, initial encounter | CPT/HCPCS: 73502; 73552 ==

== ENCOUNTER 2024-12-02 15:50 | Emergency (ER) | payer MEDICARE, MEDICAID, SELFPAY ==
--- NOTE | ~2024-12-02 | XR_ITS ---
CLINICAL HISTORY: pain 2 view right tibia-fibula Comparison: None Findings Chronic healed fracture of the distal tibia. Linear lucency of the posterior distal tibia seen on the lateral view is probably artifactual. No joint effusion. No significant arthritic change. No radiopaque foreign body. IMPRESSION: Chronic healed fracture of the distal tibia. Linear lucency of the posterior distal tibia seen on the lateral view is probably artifactual. This document has been electronically signed by: Javon Ling MD on 12/02/2024 17:56:25
--- NOTE | ~2024-12-02 | US_ITS ---
CLINICAL HISTORY: Right calf pain. DVT Venous duplex ultrasound right lower extremity Comparison: None Findings: The visualized deep veins are fully compressible with normal Doppler color flow and spectral tracings. No popliteal cyst. No soft tissue fluid collection. IMPRESSION: 1. Negative for right lower extremity deep vein thrombosis. This document has been electronically signed by: Javon Ling MD on 12/02/2024 18:34:25
[2024-12-02 16:00] VITALS: BP 104/72; PULSE 57; RESP 18; TEMP 36.8; O2SAT 98; BMI 25.9
[2024-12-02 16:40] LABS: MANUAL DIFF FLAG NO
--- NOTE | 2024-12-02 16:40 | ED.GENADULT ---
HPI - General Adult General Chief complaint: Extremity Injury, Lower Stated complaint: R leg pain Time Seen by Provider: 12/02/24 18:27 Source: patient, RN notes reviewed and old records reviewed Mode of arrival: ambulatory Limitations: no limitations History of Present Illness ED Provider: David WEEMS narrative: 39-year-old male presents for evaluation of right leg and calf pain. Patient was seen here 2 days ago after falling 3 days ago. He reports that he was here being today for right hip and thigh pain after falling on his right side. Today he was having pain to his right calf that is worse with walking He has had good relief with ibuprofen but no improvement with Tylenol He denies any history of DVT or PE No other injuries since the fall 3 days ago Related Data Previous Rx's ?Medication ?Instructions ?Recorded azithromycin 250 mg tablet See Rx Instructions PO .COMPLEX #6 06/28/21 tabs codeine 10 mg-guaifenesin 100 mg/5 5 ml PO Q6H PRN cold symptoms #120 06/28/21 mL oral liquid (Guaifenesin AC) mL azithromycin 250 mg tablet See Rx Instructions PO .COMPLEX #6 06/15/23 (Zithromax Z-Ravin) tabs acetaminophen 500 mg tablet 500 mg PO Q6H PRN fever or pain 11/30/24 (Tylenol Extra Strength) #14 tabs ibuprofen 800 mg tablet 800 mg PO Q8H PRN pain #14 tabs 11/30/24 Allergies Allergy/AdvReac Type Severity Reaction Status Date / Time No Known Allergies Allergy Verified 12/02/24 16:01 Review of Systems Constitutional: Constitutional: Denies body ache(s), Denies chills, Denies fever(s) and Denies headache(s) Eyes: Eyes: Denies blurry vision ENT: Denies vertigo, Denies dizziness and Denies headache(s) Cardiovascular: Cardiovascular: Denies chest pain and Denies dyspnea Respiratory: Respiratory: Denies cough and Denies dyspnea Gastrointestinal: Gastrointestinal: Denies abdominal pain, Denies nausea and Denies vomiting Musculoskeletal: Musculoskeletal: Denies arthralgias, Denies joint swelling, Denies limited range of motion and Reports stiffness Comments: Right calf pain Integumentary/Breasts: Skin/Breast: Denies rash Neurologic: Denies vertigo, Denies dizziness and Denies headache(s) Psychiatric: Psychiatric: Denies anxiety PMFSH Past Medical History Medical History Patient denies medical problems Social History Social History Advance Directives: No Advance Directives Information Provided: Yes Physical Exam ED Vital Signs: Vital Signs - 24 hr 12/02/24 16:00 12/02/24 19:08 Temperature 98.3 F 97.8 F Pulse Rate 57 59 Respiratory Rate 18 16 Blood Pressure 104/72 122/67 Pulse Oximetry 98 96 Oxygen Delivery Method Room Air Room Air BMI result Body Mass Index 25.9 Const General: healthy appearing, comfortable, no acute distress, alert and awake Nutritional Appearance: well nourished Orientation/consciousness: patient oriented x3 HENMT Head: Yes normocephalic and Yes atraumatic Eyes Eyelids: Yes eyelids normal Conjunctivae: conjunctivae normal Sclerae: sclerae normal Corneas: corneas normal Pupils: Equal, round and reactive pupils present EOM: EOMs intact bilaterally Neck Neck: Yes full ROM Resp Effort & Inspection: normal respiratory effort, able to speak in complete sentences and not labored Skin General skin exam: elasticity normal Neuro General: patient oriented x3 Cranial nerves: Yes Equal, round and reactive pupils present and Yes Bilaterally intact EOM present Extrem Other: Moving all extremities well without any obvious deformities. There was no obvious edema, erythema to the right lower extremity. There is negative Homans sign, no calf tenderness on exam Course Course Course Narrative: RME: 39 yold male presents to the ED Right calf pain that began today Medical Decision Making Medical Decision Making MDM Narrative: 39-year-old male presents for evaluation of right calf pain after falling 3 days ago. He had a workup ordered in triage that included labs, x-ray of the tibia and fibula as well as ultrasound to rule out DVT. The x-ray showed a chronic deformity of the distal tibia from an previous fracture but no acute injuries. The patient is also nontender to palpation of the right lateral malleolus. Ultrasound was negative for DVT. There are no findings to suggest the patient has a soft tissue infection or cellulitis. The patient will be discharged with continue symptomatic care and will follow up with his outpatient providers Differential Diagnosis Differential Diagnoses: The differential diagnosis associated with the presentation includes Muscle strain Contusion DVT Tendonitis Cellulitis less likely Lab Data MDM Lab Attestation statement: I reviewed the patient's lab results. No leukocytosis or anemia. Normal platelet count. No electrolyte abnormalities warranting intervention. 12/02/24 16:35 12/02/24 16:35 Labs: Lab Results 12/02/24 Range/Units 16:35 WBC 9.0 (4.8-10.8) X10*3/uL RBC 5.64 (4.60-5.80) X10*6/uL Hgb 15.4 (14.0-18.0) g/dl Hct 46.4 (42.0-52.0) % MCV 82.3 (80.0-98.0) fL MCH 27.3 (27.0-33.0) pg MCHC 33.2 (31.0-36.0) g/dl RDW 13.2 (11.0-16.0) % Plt Count 288 D (160-400) X10*3/uL MPV 9.1 L (9.4-12.4) fL Immature Gran % (Auto) 0.3 (0.0-0.4) % Neut % (Auto) 71.8 (45-73) % Lymph % (Auto) 16.2 L (20-40) % Limestone % (Auto) 7.7 (2-11) % Eos % (Auto) 3.4 (0-4) % Baso % (Auto) 0.6 (0-2) % Lymph # (Auto) 1.5 (1.2-4.9) X10*3/uL Limestone # (Auto) 0.7 (0.1-1.2) X10*3/uL Eos # (Auto) 0.3 (0.0-0.4) X10*3/uL Baso # (Auto) 0.1 (0.0-0.2) X10*3/uL Abs Immat Gran (auto) 0.03 (0.00-0.03) X10*3/uL Absolute Neuts (auto) 6.5 (2.0-8.3) x10*3/uL Absolute Nucleated RBC 0.000 (0.0-0.012) X10*3/uL Nucleated RBC % (auto) 0.0 (0.0-0.2) /100WBC PT 14.3 H (10.9-12.4) SEC INR 1.2 H (0.9-1.1) APTT 29.3 (26.0-36.8) SEC Sodium 144 (135-145) mmol/L Potassium 4.3 (3.3-5.1) mmol/L Chloride 107 (96-108) mmol/L Carbon Dioxide 24 (22-29) mmol/L Anion Gap 17 (12-20) BUN 17 H (9-16) mg/dL Creatinine 1.11 (0.5-1.4) mg/dL Estim Creat Clear Calc 98.9 Estimated GFR > 60 Random Glucose 95 (60-115) mg/dL Calcium 9.8 D (8.4-10.2) mg/dL Total Bilirubin 1.6 H (0.0-1.0) mg/dL AST 24 (5-37) U/L ALT 30 (0-40) U/L Alkaline Phosphatase 86 (39-117) U/L Total Protein 7.8 (6.5-8.0) g/dL Albumin 4.5 (3.5-5.0) g/dL Independent Interpretation I performed an independent interpretation of an: Plain X-Ray Interpretation: Agree with Radiology interpretation Radiology Impression Discussion of test interpretation with radiology: I have reviewed the radiologist's reading. Radiologist Impression: Findings Chronic healed fracture of the distal tibia. Linear lucency of the posterior distal tibia seen on the lateral view is probably artifactual. No joint effusion. No significant arthritic change. No radiopaque foreign body. IMPRESSION: Chronic healed fracture of the distal tibia. Linear lucency of the posterior distal tibia seen on the lateral view is probably artifactual. This document has been electronically signed by: Javon Ling MD on 12/02/2024 17:56:25 Findings: The visualized deep veins are fully compressible with normal Doppler color flow and spectral tracings. No popliteal cyst. No soft tissue fluid collection. IMPRESSION: 1. Negative for right lower extremity deep vein thrombosis. This document has been electronically signed by: Javon Ling MD on 12/02/2024 18:34:25 Discharge Plan Discharge Clinical Impression: Leg pain, right Patient Disposition: Home, Self-Care Instructions: Leg Pain (ED) Additional Instructions: Your workup in the ER today was reassuring. This includes your x-ray the that does not show any acute fractures. Your ultrasound does not show any blood clots in your leg Continue using ibuprofen for pain. Follow-up with your primary doctor, return for new or worsening symptoms Prescriptions: No Action azithromycin 250 mg tablet See Rx Instructions .ROUTE .COMPLEX Qty: 6 0RF Rx Instructions: take 500 mg today (day 1), then 250 mg for 4 days (days 2-5) codeine-guaifenesin [Guaifenesin AC] 10-100 mg/5 mL liquid 5 ml PO Q6H PRN (Reason: cold symptoms) Qty: 120 0RF azithromycin [Zithromax Z-Ravin] 250 mg tablet See Rx Instructions .ROUTE .COMPLEX Qty: 6 0RF Rx Instructions: For 250 mg dose pack: take 500 mg today (day 1), then 250 mg for 4 days (days 2-5) ibuprofen 800 mg tablet 800 mg PO Q8H PRN (Reason: pain) Qty: 14 0RF acetaminophen [Tylenol Extra Strength] 500 mg tablet 500 mg PO Q6H PRN (Reason: fever or pain) Qty: 14 0RF Interventions: ED Discharge Assessment Last Done: 12/02/24 19:08 Discharge Date/Time: 12/02/24 19:21 Print Language: Vietnamese
[2024-12-02 16:47] LABS: Basophils Absolute Auto 0.1 X10*3/uL (0.0-0.2); Basophils Percent Auto 0.6 % (0-2); Eosinophils Absolute Auto 0.3 X10*3/uL (0.0-0.4); Eosinophils Percent Auto 3.4 % (0-4); Hematocrit 46.4 % (42.0-52.0); Hemoglobin 15.4 g/dl (14.0-18.0); Imm Gran Abs Auto 0.03 X10*3/uL (0.00-0.03); Imm Gran Pct Auto 0.3 % (0.0-0.4); Lymphocytes Absolute Auto 1.5 X10*3/uL (1.2-4.9); Lymphocytes Percent Auto 16.2 % (20-40); Mean Corpuscular HGB Conc 33.2 g/dl (31.0-36.0); Mean Corpuscular Hemoglobin 27.3 pg (27.0-33.0); Mean Corpuscular Volume 82.3 fL (80.0-98.0); Mean Platelet Volume 9.1 fL (9.4-12.4); Monocytes Absolute Auto 0.7 X10*3/uL (0.1-1.2); Monocytes Percent Auto 7.7 % (2-11); Neutrophils Absolute Auto 6.5 x10*3/uL (2.0-8.3); Neutrophils Percent Auto 71.8 % (45-73); Platelet Count 288 X10*3/uL (160-400); Red Blood Count 5.64 X10*6/uL (4.60-5.80); Red Cell Distribution Width 13.2 % (11.0-16.0)
[2024-12-02 16:54] LABS: INTERNATIONAL NORM RATIO 1.2 (0.9-1.1); Prothrombin Time 14.3 SEC (10.9-12.4)
[2024-12-02 16:57] LABS: Partial Thromboplastin Time 29.3 SEC (26.0-36.8)
[2024-12-02 17:02] LABS: Alanine Aminotransferase 30 U/L (0-40); Albumin Level 4.5 g/dL (3.5-5.0); Anion Gap 17 (12-20); Aspartate Amino Transferase 24 U/L (5-37); Bilirubin Total 1.6 mg/dL (0.0-1.0); Blood Urea Nitrogen 17 mg/dL (9-16); Calcium 9.8 mg/dL (8.4-10.2); Carbon Dioxide 24 mmol/L (22-29); Chloride 107 mmol/L (96-108); Creatinine Clr Calc Pharmacy 98.9; Estimated Glomerular Filt Rate > 60; Glucose Random 95 mg/dL (60-115); Potassium 4.3 mmol/L (3.3-5.1); Sodium 144 mmol/L (135-145); Total Protein 7.8 g/dL (6.5-8.0)
[2024-12-02 17:17] LABS: Alkaline Phosphatase 86 U/L (39-117)
[2024-12-02 19:08] VITALS: BP 122/67; PULSE 59; RESP 16; TEMP 36.6; O2SAT 96
== END 2024-12-02 19:21 | disposition home or self-care (01) ==
PROVIDERS: Physician Assistant; Emergency Provider Emergency Medicine
DX: M79.661 Pain in right lower leg (principal); M25.551 Pain in right hip
CPT/HCPCS: 36415; 73590; 80053; 85025; 85610; 85730; 93971; 99282; 99284

== ENCOUNTER → 2024-12-02 16:43 | Outpatient (BNV) | payer MEDICARE, MEDICAID, SELFPAY | PROVIDERS: Visit Provider Nuclear Medicine | DX: I82.401 Acute embolism and thrombosis of unspecified deep veins of right lower extremity (principal); M79.661 Pain in right lower leg; S82.301D Unspecified fracture of lower end of right tibia, subsequent encounter for closed fracture with routine healing | CPT/HCPCS: 73590; 93971 ==

== ENCOUNTER 2025-01-16 13:49 | Emergency (ER) | payer MEDICARE, MEDICAID, SELFPAY ==
[2025-01-16 14:48] VITALS: BP 121/68; PULSE 58; RESP 18; TEMP 36.1; O2SAT 99; BMI 25.4
--- NOTE | 2025-01-16 15:10 | ED_ITS ---
HPI - General Adult General Chief complaint: Skin/Abscess/Foreign Body Stated complaint: skin infection ? Time Seen by Provider: 01/16/25 15:38 Source: patient Mode of arrival: ambulatory Limitations: no limitations History of Present Illness ED Provider: jordon Greer HPI narrative: 39 yold healthy male presents to the ED for abdomen small areas of erythema/mass after shaving abdomen with razor. patient denies any fever, chill, nausea, vomitting, flank pain, IV drug use, or any genitouniary stympsom. Related Data Previous Rx's ?Medication ?Instructions ?Recorded azithromycin 250 mg tablet See Rx Instructions PO .COMPLEX #6 06/28/21 tabs codeine 10 mg-guaifenesin 100 mg/5 5 ml PO Q6H PRN cold symptoms #120 06/28/21 mL oral liquid (Guaifenesin AC) mL azithromycin 250 mg tablet See Rx Instructions PO .COMPLEX #6 06/15/23 (Zithromax Z-Ravin) tabs acetaminophen 500 mg tablet 500 mg PO Q6H PRN fever or pain 11/30/24 (Tylenol Extra Strength) #14 tabs ibuprofen 800 mg tablet 800 mg PO Q8H PRN pain #14 tabs 11/30/24 cephalexin 500 mg capsule 500 mg PO QID #28 caps 01/16/25 doxycycline hyclate 100 mg capsule 100 mg PO BID #14 caps 01/16/25 mupirocin 2 % topical ointment 1 appl topical TID #22 grams 01/16/25 naproxen 500 mg tablet 500 mg PO BID PRN pain #14 tabs 01/16/25 Allergies Allergy/AdvReac Type Severity Reaction Status Date / Time No Known Allergies Allergy Verified 01/16/25 14:48 Review of Systems 2 Review of Systems: abdominal small/erythmatous rash after shavig Yes all other systems are reviewed and are negative PMFSH Past Medical History Medical History Patient denies medical problems Social History Social History Advance Directives: No Advance Directives Information Provided: No Do you have a plan to hurt others: No Plan Physical Exam ED Vital Signs: Vital Signs - 24 hr 06/11/25 14:48 Temperature 97.0 F Pulse Rate 58 Respiratory Rate 18 Blood Pressure 121/68 Pulse Oximetry 99 Oxygen Delivery Method Room Air BMI result Body Mass Index 25.4 Const General: cooperative, healthy appearing, comfortable, no acute distress, well developed, alert, awake and Physically active Orientation/consciousness: patient oriented x3 [facility] Head: Yes normal to inspection, Yes No palpable skull fracture present, Yes normocephalic and Yes atraumatic Eyes General: appearance normal, both eyes and all related structures Neck Neck: Yes normal visual inspection, Yes full ROM, Yes no lymphadenopathy, Yes no meningeal signs, Yes trachea midline, Yes supple, No anterior neck swelling and No tender Chest Chest palpation & inspection: normal inspection of the chest and normal palpation of entire chest wall Resp Effort & Inspection: normal respiratory effort and able to speak in complete sentences Cardio Jugular venous distension: no JVD Heart sounds: S1 normal heart sound present and S2 normal heart sound present GI Inspection: Yes normal to inspection Palpation (GI): Soft to palpation Abdomen image: 2 1. positive or small area erythema with non-fluctulant mass that tender on palpation. negative for any pus drainage. 2. positive or small area erythema with non-fluctulant mass that tender on palpation. negative for any pus drainage 3. positive or small area erythema with non-fluctulant mass that tender on palpation. negative for any pus drainage General: Yes no CVA tenderness Back/Spine/Pelvis Back: no CVA tenderness and No erythema Skin General skin exam: no rashes or lesions noted, elasticity normal and turgor normal Neuro General: patient oriented x3, gait normal, Normal light touch and pain sensation, no meningeal signs, no focal motor deficits and CN's II-XI intact bilaterally Extrem General: Yes normal to inspection, Yes full ROM and Yes capillary refill normal Psych Appearance: grossly normal, well kempt and not disheveled Course Course Course Narrative: RME: 39-year-old male presents to ED for small area of redness/lumps on abdomen at occurred after shaving with a razor. Patient denies any fever or chills. Patient denies any history of IV drug use or trauma to the area. Medical Decision Making Medical Decision Making MDM Narrative: Patient presents to ED for small areas of redness and pain after shaving with a razor. Physical exam indicate positive folliculitis,cellulitis, versus early abscess. Negative for any pus drainage. Presently no indication for incision or drainage. Patient explained worrisome signs informed return to the ED immediately. Not suspecting peritonitits, osteomyelitits, sepsis, faiza johnsson, necrotizing fascititis, or any other life threatenting etiology. Differential Diagnosis Differential Diagnoses: The differential diagnosis associated with the presentation includes (Cellulitis abscess) Admission/Observation Consideration of admission/observation: Escalation of care including admission/observation considered Independent Historian Clinical information obtained from an independent historian. History obtained from or confirmed by: Other (patient) Prescription Management I considered prescription management with: Antibiotic Discharge Plan Discharge Clinical Impression: Cellulitis, Abscess of skin or subcutaneous tissue, Folliculitis Patient Disposition: Home, Self-Care Instructions: Cellulitis (ED), Folliculitis (ED), Abscess (ED) Additional Instructions: Presently no indication for incision and drainage. Recommend being compliant with prescribed antibiotics. Recommend warm compress on area 4 times a day for 15 minutes. Return to the ED immediately for any abdominal pain, worsening redness, increased signs of masses, pus discharge, foul odor, fever, chills, or any other concerning symptoms. Recommend follow up with PCP. Prescriptions: New cephalexin 500 mg capsule 500 mg PO QID Qty: 28 0RF doxycycline hyclate 100 mg capsule 100 mg PO BID Qty: 14 0RF mupirocin 2 % ointment 1 appl topical TID Qty: 22 0RF naproxen 500 mg tablet 500 mg PO BID PRN (Reason: pain) Qty: 14 0RF No Action azithromycin 250 mg tablet See Rx Instructions .ROUTE .COMPLEX Qty: 6 0RF Rx Instructions: take 500 mg today (day 1), then 250 mg for 4 days (days 2-5) codeine-guaifenesin [Guaifenesin AC] 10-100 mg/5 mL liquid 5 ml PO Q6H PRN (Reason: cold symptoms) Qty: 120 0RF azithromycin [Zithromax Z-Ravin] 250 mg tablet See Rx Instructions .ROUTE .COMPLEX Qty: 6 0RF Rx Instructions: For 250 mg dose pack: take 500 mg today (day 1), then 250 mg for 4 days (days 2-5) ibuprofen 800 mg tablet 800 mg PO Q8H PRN (Reason: pain) Qty: 14 0RF acetaminophen [Tylenol Extra Strength] 500 mg tablet 500 mg PO Q6H PRN (Reason: fever or pain) Qty: 14 0RF Stand Alone Forms: Work/School Release Interventions: ED Discharge Assessment Last Done: 01/16/25 15:58 Discharge Date/Time: 01/16/25 16:20 Print Language: Slovak
[2025-01-16 15:58] VITALS: BP 121/68; PULSE 58; RESP 18; TEMP 36.1; O2SAT 99
--- OUTSIDE RECORDS SUMMARY | 2025-01-16 18:12 | XMS_ITS | Clinical Summary ---
Author Organization [facility] Address [address] [place] [address] [address] [place] [address] Care Team Providers Care Boomswing Operator Name Role Phone Jeannine Cobos MD Primary Care Provider + Allergies No known active allergies Medications sotalol (Betapace) 160 MG tablet Take 1 tablet by mouth 2 times daily. 09/14/2024 Active Acetaminophen Extra Strength 500 MG tablet TAKE 1 TABLET ORALLY EVERY 6 HOURS NEEDED FOR FEVER OR PAIN 11/30/2024 Active ibuprofen 800 MG tablet Take 800 mg by mouth every 8 (eight) hours if needed. Active cholecalciferol (Vitamin D-3) 20 MCG (800 UNIT) tabletIndication s:Hypovitaminosi s D Take 1 tablet (20 mcg) by mouth Once per day. 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 12/05/2024 Limited literacy 12/05/2024 Ventricular fibrillation 12/05/2024 Vitamin D deficiency 12/05/2024 Visual impairment 12/05/2024 Encounters Date Type Department Care Team Description 12/05/2024 2:00 PM EDT Office Visit [facility] [address] [place] [phone] Tricia Irene NP Encounter to establish care with new provider (Primary Dx); Hypovitaminosis D; Encounter for health-related screening; Encounter for immunization 12/05/2024 Travel 12/04/2024 Telephone [facility] [address] [place] [address] Karen Irvin MA chartprep 12/03/2024 Telephone [facility] [address] [place], [place] [id number] Pilar Walsh RN ER Follow-up 11/30/2024 Orders Only [facility] External Provider, [facility] from Last 3 Months Immunizations Immunization Administration Dates Next Due Hep B, adult 12/05/2024 Family History Medical History Relation Name Comments No Known Problems Father cardiac arrythmia Father's Sister No Known Problems Mother Relation Name Status Comments Father Father's Sister Mother Social History Tobacco Use Types Packs/Day Years Used Date Smoking Tobacco: Never Passive Smoke Exposure: Never Smokeless Tobacco: Never Tobacco Cessation:Counseling Given: Not Answered Alcohol Use Standard Drinks/Week Comments Never 0 (1 standard drink = 0.6 oz pur e alcohol) Alcohol Answer Date Recorded How often do you have a drink containing alcohol ? 0 12/05/2024 How many drinks containing a lcohol do you have on a typical day when you are drinking? 0 12/05/2024 How often do you have six or more drinks on one occasion? 0 12/05/2024 Depression Answer Date Recorded Patient Health Questionnaire-9 Score 6 12/05/2024 Patient Health Questionnaire-9 Score 6 12/05/2024 Last PHQ-9: Questionnaire Data Not on file 0 12/05/2024 Housing Stability Answer Date Recorded What is your housing situation today? I have malu damon 12/05/[address] you li ve. Do you have problems with any of the following? None of the above 12/05/2024 Food Insecurity Answer Date Recorded Within the past 12 months, y ou worried that your food would run out before you got money to buy more: Never True 12/05/2024 Within the past 12 months,th e food you bought just didn't last and you didn't have enough money to get more: Never True Transportation Answer Date Recorded In the past 12 months, has l ack of transportation kept you from medical appts, meetings, work or from getting things needed for daily living? No 12/05/2024 Utilities Answer Date Recorded In the past 12 months, has t he electric, gas, oil or water company threatened to shut off services in your home? No 12/05/2024 Depression Answer Date Recorded Patient Health Questionnaire-2 Score 3 12/05/2024 Internet Access Answer Date Recorded Internet Access Q1 Yes 12/05/2024 Internet Access Q2 Not on file 12/05/2024 Sex and Gender Information Value Date Recorded Sex Assigned at Male 06/07/2022 10:16 AM EDT Legal Sex Male 10:16 AM EDT Gender Identity Male 06/07/2022 10:16 AM EDT Sexual Orientation Choose not to disclose 2021 10:16 AM EDT Last Filed Vital Signs Vital Sign Reading Time Taken Comments Blood Pressure 112/72 12/05/2024 2:46 PM EDT Pulse 66 12/05/2024 2:18 PM EDT Temperature 36.3 ??C (97.4 ??F) 12/05/2024 2:18 PM ED T Respiratory Rate 16 12/05/2024 2:18 PM EDT Oxygen Saturation 98% 12/05/2024 2:18 PM EDT Inhaled Oxygen Concentration - - Weight 88.5 kg (195 lb 3.2 oz) 12/05/2024 2:18 P M EDT Height 188 cm (6' 2 ) 12/05/2024 2:18 PM EDT Body Mass Index 25.06 12/05/2024 2:18 PM EDT Plan of Treatment Health Maintenance Due Date Last Done Comments Lipid Panel 1983 Family Planning (PISQ) 1998 Hepatitis C Screening 2001 DTaP/Tdap/Td Vaccines (1 - Tdap) 2002 COVID-19 Vaccine (1 - 2023-2 5 season) 2024 Hepatitis B Vaccines (2 of 3 - 19+ 3-dose series) 01/02/2025 12/05/2024 Influenza Vaccine (Season Ended) 2025 Alcohol/Substance Use Screening 12/05/2025 12/05/2024 Depression Screening 12/05/2025 12/05/2024, 12/05/2024 Disability Screening 12/05/2025 12/05/2024 SDOH Screening 12/05/2025 12/05/2024 Tobacco Screening 12/05/2025 12/05/2024 Zoster Vaccines (1 of 2) 2033 RSV Patients and Patients Aged 60 years or older (1 - [...] patient's age to complete this topic Meningococcal B Vaccine Aged Out No l onger eligible based on patient's age to complete this topic Meningococcal Vaccine Aged Out No saige laurence eligible based on patient's age to complete this topic Pneumococcal Vaccine: Pediatrics (0 to 5 Years) and At-Risk Patients (6 to 49) Years) Aged Out No longer eligible b ased on patient's age to complete this topic RSV under 20 months Aged Out No longe r eligible based on patient's age to complete this topic Rotavirus Vaccines Aged Out No longer eligible based on patient's age to complete this topic Procedures Procedure Name Priority Date/Time Associated Diagnosis Comments XR FEMUR 2+ VIEWS RIGHT Routine 11/30/2024 11:19 AM EDT HIV 1/2 ANTIGEN/ANTIBODY, FOURTH GENERATION W/RFL Routine 01/14/2022 10:44 AM EDT from Last 3 Months or Most Recently Relevant to Health Maintenance Results * XR Femur 2+ Views Right (11/30/2024 11:19 AM EDT) Anatomical Region Laterality Modality Lower Extremities, Femur Right Radiogr aphic Imaging 11/30/2024 11:1 9 AM EDT Narrative 11/30/2024 12:47 PM EDT ? [facility] ?[address] ?[place] [address] ?XRay Report ? Signed ? Patient: Vera,Eduardo ?MR#: [id number] ?? 7 ? : 1985 ?Acct:[id number] ? Age/Sex: 39 / M ?ADM Date: 04/25/25 ? Loc: HO.ED ? Attending Dr: ? Ordering Physician: Janeth Garcia ?? Date of Service: 11/30/24 ?? Procedure(s): XR femur RT 2V ?? Accession Number(s): [id number] ? cc: [facility]; Janeth Garcia ? EXAMINATION: ?? XR FEMUR, RIGHT ? CLINICAL INFORMATION: ?? fall ? COMPARISON: ?? None available. ? TECHNIQUE: ?? AP and lateral views of the right femur were obtained. ? FINDINGS: ?? The bones and soft tissues are normal. No fracture. No osseous lesions. ? Mild arthritis in the right hip joint. No knee joint effusion noted. ?? Lateral patellar subluxation incidentally noted. ? XR/XR femur RT 2V ?? IMPRESSION: ?? No acute bony abnormalities. ?? Lateral patellar subluxation incidentally noted. ? Electronically signed by: ??Dax Hart MD ??11/30/2024 12:44 PM EDT RP ? Dictated By: ?Dax Hart MD ? Signed By: ?<Electronically signed by Dax Hart MD in OV> ?11/30/24 1244 ? DD/ 1119 ? TD/TT: 11/30/24 1153 ? Creative Services Designer: ? Procedure Note Treell, Image - 11/30/2024 [place] [address] XRay Report Signed Patient: Bran Gamez#: [id number] 7 : 1985Acct:[id number] Age/Sex: 39 / MADM Date: 11/30/24 Loc: HO.ED Attending Dr: Ordering Physician: Janeth Garcia Date of Service: 11/30/24 Procedure(s): XR femur RT 2V Accession Number(s): [id number] cc: [facility]; Janeth Garcia EXAMINATION: XR FEMUR, RIGHT CLINICAL INFORMATION: fall COMPARISON: None available. TECHNIQUE: AP and lateral views of the right femur were obtained. FINDINGS: The bones and soft tissues are normal. No fracture. No osseous lesions. Mild arthritis in the right hip joint. No knee joint effusion noted. Lateral patellar subluxation incidentally noted. XR/XR femur RT 2V IMPRESSION: No acute bony abnormalities. Lateral patellar subluxation incidentally noted. Electronically signed by: Dax Hart MD 11/30/2024 12:44 PM EDT Dictated By: Dax Hart MD Signed By: <Electronically signed by Dax Hart MD in OV> 11/30/24 1244 DD/ 1119 TD/TT: 11/30/24 1153 Creative Services Designer: [facility] External Provider IMG XR PROCEDURES Edited Result - Final * HIV 1/2 ANTIGEN/ANTIBODY,FOURTH GENERATION W/RFL (01/14/2022 10:44 AM EDT) Pathologist [facility] HIV-1/2 ANTIGEN AND ANTIBODIES, 4TH GENERATION W/ REFLEX NON-REACT CALVIN NON-REACT CALVIN [facility] Comment: HIV-1 antigen and HIV-1/HIV-2 [...] ? For additional information please refer to http://education.CromoUp.Partly/faq/CWE385 (This link is being provided for informational/ educational purposes only.) ? The performance of this assay has not been clinically validated in patients less than 2 years old. ?? 01/14/2022 10:4 4 AM EDT Jeannine Cobos MD LAB BLOOD ORDERABLES Fin al Result [facility] [address] from Last 3 Months or Most Recently Relevant to Health Maintenance Insurance [facility] STANDARD MEDICARE Care Teams Boomswing Operator Relationship Specialty Start Date End Date Jeannine Cobos MD [address] [place] [address] PCP - General Family Medicine 06/21/19
== END 2025-01-16 16:20 | disposition home or self-care (01) ==
LOC: HO.ED 16:03
PROVIDERS: Emergency Provider Emergency Medicine Emergency Medical Services
DX: L03.311 Cellulitis of abdominal wall (principal); L02.211 Cutaneous abscess of abdominal wall; L73.8 Other specified follicular disorders
CPT/HCPCS: 99282; 99283